=== PATIENT | male | born 1970 | race Caucasian/White ===

== ENCOUNTER 2020-06-09 17:08 | Emergency (ER) | payer MEDICAID, SELFPAY ==
[2020-06-09 17:19] VITALS: BP 153/80; PULSE 93; RESP 16; TEMP 36.2; O2SAT 100
[2020-06-09 17:33] VITALS: BP 153/80; PULSE 93; RESP 16; TEMP 36.2; O2SAT 100
--- NOTE | 2020-06-09 18:10 | ED.GENADULT ---
HPI - General Adult General Chief complaint: Skin/Abscess/Foreign Body Stated complaint: Skin/Foreign Abscess Source: patient Mode of arrival: ambulatory Limitations: no limitations History of Present Illness HPI narrative: Patient presents for evaluation of painful swollen lesion to the right posterolateral neck for the last 4 days. He has associated redness. Denies any fever, chills, nausea, vomiting, drainage from the affected area, difficulty breathing or swallowing. No underlying history of diabetes. States symptoms occurred while he was out of town in [facility] visiting friends. He has not tried any therapies to assist with his symptoms. No additional complaints or concerns. Related Data Home Medications Medication Instructions Recorded Confirmed No Home Medications 06/09/20 06/09/20 Allergies Allergy/AdvReac Type Severity Reaction Status Date / Time No Known Allergies Allergy Verified 06/09/20 17:33 Review of Systems Review of Systems: Narrative: CONSTITUTIONAL: Denies fever, chills, or sweats. EYES: Denies visual changes, redness, or discharge. ENT: Denies rhinorrhea, congestion, sore throat, or otalgia. CARDIOVASCULAR: Denies chest pain, palpitations, or edema. RESPIRATORY: Denies cough or dyspnea. GASTROINTESTINAL: Denies abdominal pain, nausea, vomiting, or diarrhea. GENITOURINARY: Denies dysuria or hematuria. SKIN: Reports painful swollen lesion to the right posterolateral neck with associated redness MUSCULOSKELETAL: Reports neck pain. Denies back pain, joint pain. NEUROLOGIC: Denies headache, numbness, dizziness, or weakness. PSYCHIATRIC: Denies anxiety or depression. PMFSH Past Medical History Medical History Tobacco use Surgical History Surgical History No pertinent past surgical history Family History Family History (Updated 06/09/20 @ 18:13 by Jose Alejandro Tinoco, ASSESSMENT NURSE PRACTITIONER, ) Mother No pertinent past medical history Father No pertinent past medical history Exam Narrative: Exam Narrative: GENERAL: Well-appearing, well-nourished, and in no acute distress. HEAD: Normocephalic, atraumatic. EYES: PERRLA and EOMI. ENT: Nares clear, no rhinorrhea or epistaxis. Mucous membranes moist. Oropharynx without tonsillar hypertrophy exudate or other lesions. Bilateral TMs pearly montoya nonbulging NECK: Supple. No adenopathy No carotid bruits or JVD. Tenderness over right posterolateral neck lesion CHEST: Clear to auscultation. No respiratory distress. No wheezes rales or rhonchi HEART: Regular rate and rhythm. No murmur heard. Normal peripheral pulses. ABDOMEN: Soft, nontender, nondistended, normal active bowel sounds. EXTREMITIES: Normal range of motion. No edema. SKIN: Warm, dry, no rash. Approximately 2.5 cm raised erythematous lesion to the right posterolateral neck along the hairline, with erythema extending down the right lateral neck to the clavicle. There appears to be a central area of fluctuance with a central pustular lesion. There is also surrounding induration. NEURO: No focal deficits. Alert and oriented x3. PSYCH: Normal mood and affect. Course Course Emergency Course: This is a 49-year-old male that presented with a 4-day history of apparent abscess formation to the right posterior lateral neck. He had no systemic signs of infection. Attempted to perform incision and drainage. Patient was given local lidocaine. Unfortunately he was unable to tolerate the procedure so procedure was aborted. Informed patient it was recommended that he have incision and drainage performed but we do not have appropriate medication to sedate him to perform this. Informed patient that transfer to emergency department for IV med/sedation and drainage of lesion. I am concerned that due to anatomic location of this lesion, if it is not drained and could develop inflammatory changes in the neck which would place him at risk for airway co
== END 2020-06-09 18:51 | disposition short-term general hospital (02) ==
LOC: EXPBETH 17:15
PROVIDERS: Emergency Provider Nurse Practitioner
DX: L02.11 Cutaneous abscess of neck (principal); Z72.0 Tobacco use
CPT/HCPCS: 10060; 99202; G0463

== ENCOUNTER 2020-08-21 11:41 | Emergency (ER) | payer OTHER, SELFPAY ==
--- NOTE | 2020-08-21 11:49 | ED.DENTAL ---
HPI - Dental/Oral General Chief complaint: Dental/Oral Stated complaint: swollen jaw Time Seen by Provider: 08/21/20 11:49 Source: patient Mode of arrival: ambulatory Limitations: no limitations History of Present Illness HPI Narrative: William Celaya is a 49 yo male with no PMH who comes to express care with a knot that is swollen and painful in jaw that started yesterday. R lower jaw is swollen with large area at tooth 30 that is tender. He has no fever nausea or vomiting but states his pain is 9 out of 10 Patient was here 1 month ago with large cyst in the back of her right neck that was incised but patient was sent to the ER and he was hospitalized with IV antibiotics. States he is recovered since that time is not taking further medication Related Data Home Medications Medication Instructions Recorded Confirmed No Home Medications 06/09/20 06/09/20 Allergies Allergy/AdvReac Type Severity Reaction Status Date / Time No Known Allergies Allergy Verified 08/21/20 11:52 Review of Systems Review of Systems: Narrative: CONSTITUTIONAL: Denies fever, chills, sweats. EYES: Denies visual changes, redness, discharge. ENT: Denies rhinorrhea, congestion, sore throat, otalgia. CARDIOVASCULAR: Denies chest pain, palpitations, edema. RESPIRATORY: Denies dyspnea, wheezing, cough GASTROINTESTINAL: Denies abdominal pain, nausea, vomiting, diarrhea. GENITOURINARY: Denies dysuria, hematuria, abnormal discharge SKIN: Denies rash or itching. NEUROLOGIC: Denies numbness, or focal weakness. PSYCHIATRIC: Denies anxiety or depression. Right lower jaw swelling and pain appears to be dental issue [facility] Past Medical History Medical History Tobacco use Surgical History Surgical History No pertinent past surgical history Family History Family History Mother No pertinent past medical history Father No pertinent past medical history Social History Social History (Updated 08/21/20 @ 12:14 by Kasie Pinzon CNP) Smoking packs per day: 0.5 Smoking cigarettes per day: 10.0 Smoking status: Current every day smoker Tobacco type: cigarettes Alcohol intake: current Gender identity (if verbalized by the patient): Male Comments At time of signature, I agree with nursing past medical, surgical, social and family history. There is no relevant family history pertinent to the presenting complaint. Patient is blood pressure is elevated due to pain has no history of hypertension but will follow up with primary care physician Exam Narrative: Exam Narrative: GENERAL: This is a well-nourished, well-developed patient, in moderate distress. HEAD: normocephalic, atraumatic. EYES: Sclera clear/white. Vision is grossly intact. EARS: External ears normal. Hearing grossly intact. NOSE: External nose normal without nasal discharge, nares without redness, no rhinorrhea. THROAT: Mucous membranes moist, posterior pharynx -tooth #30 has fracture and hole- tender when palpated- swelling below umline NECK: Neck supple, non-tender CARDIOVASCULAR: Regular rate and rhythm without murmurs, gallops, or rubs. RESPIRATORY: Clear to auscultation. Breath sounds equal bilaterally. No wheezes, rales, or rhonchi. GASTROINTESTINAL: Abdomen soft, non-tender, SKIN: warm, intact with no suspicious lesions or rash, good texture and turgor. NEURO: awake, alert, and oriented to person, place and time. There were no obvious focal neurologic abnormalities. Steady gait EXTREMITIES: Normal range of motion. BACK: Nontender without deformity Course Course Emergency Course: Patient comes here with right lower jaw swelling and apparent fracture of tooth Examination patient will be started on Bactrim and Keflex with high-dose ibuprofen and hydrocodone hydrocodone for pain He has bradycardia and insurance and so was given dental sheets as well as she
[2020-08-21 11:56] VITALS: BP 145/87; PULSE 87; RESP 16; TEMP 36.9; O2SAT 99
== END 2020-08-21 12:29 | disposition home or self-care (01) ==
PROVIDERS: Emergency Provider Nurse Practitioner
DX: R22.0 Localized swelling, mass and lump, head (principal); K04.7 Periapical abscess without sinus; F17.210 Nicotine dependence, cigarettes, uncomplicated
CPT/HCPCS: 99213; G0463

== ENCOUNTER 2024-10-02 19:52 | Emergency (ER) | payer OTHER, SELFPAY ==
--- OUTSIDE RECORDS SUMMARY | 2024-10-02 19:54 | XMS_ITS | Clinical Summary ---
Author Organization [facility] Address [address] [place] [address] Phone Care Team Providers Care Community Chest Officer Name Role Phone Provider, None Primary Care Provider Unavailabl e Allergies No known active allergies Medications HYDROcodone-héctor taminophen (NORCO) 5-325 MG Tablet Take 1-2 Tabs by mouth every 4 hours as needed for Pain. 20 Tab 0 08/06/2016 Active cephALEXin (KEFLEX) 500 MG Capsule Take 500 mg by mouth 4 times daily. Active predniSONE (DELTASONE) 10 MG Tablet Use as directed. Active fluticasone (FLONASE) 50 MCG/ACT Suspension 1-2 Sprays by Nasal route daily. Use in each nostril as directed. Active oxyCODONE-aceta minophen (PERCOCET) 7.5-325 MG Tablet Take 1 Tab by mouth every 4 hours as needed for Pain. 20 Tab 0 08/10/2016 Active valACYclovir (VALTREX) 1 GM Tablet Take 1 Tab by mouth 3 times daily. 21 Tab 0 08/10/2016 Active Social History Tobacco Use Types Packs/Day Years Used Date Smoking Tobacco: Every Day Cigarettes Alcohol Use Standard Drinks/Week Comments Yes 20 (1 standard drink = 0.6 oz pu re alcohol) Sex and Gender Information Value Date Recorded Sex Assigned at Not on file Legal Sex Male 3:45 AM CDT Gender Identity Not on file Sexual Orientation Not on file Last Filed Vital Signs Vital Sign Reading Time Taken Comments Blood Pressure 112/59 08/10/2016 11:39 AM CDT Pulse 60 08/10/2016 11:39 AM CDT Temperature 37.5 C (99.5 F) 08/10/2016 11:39 AM CDT Respiratory Rate 18 08/10/2016 11:39 AM CDT Oxygen Saturation 99% 08/10/2016 11:39 AM CDT Inhaled Oxygen Concentration - - Weight 72.6 kg (160 lb) 08/10/2016 11:39 AM CDT Height 185.4 cm (6' 1 ) 08/10/2016 11:39 AM CDT Body Mass Index 21.11 08/10/2016 11:39 AM CDT Plan of Treatment Health Maintenance Due Date Last Done Comments Hepatitis C Virus (HCV) Screening 1972 TdaP Immunization 1972 Hepatitis B Immunization (1 of 3 - 19+ 3-dose series) 08/27/1991 Colonoscopy 2017 Colorectal Cancer Screening 2017 Cologuard 2022 Immunochemical Fecal Occult Blood 2022 Pneumococcal Immunization (5 0+ years) (1 of 1 - PCV) 2022 Zoster Immunization (1 of 2) 2022 Influenza Immunization (#1) 2024 SARS-COV-2 Immunization (1 - 2023- season) 2024 Respiratory Syncytial Virus (RSV) Immunization (Adult) (1 - 1-dose 75+ series) 08/27/2047 Meningococcal Immunization (ACWY) Aged Out No longer eligible based on patient's age to complete this topic Pneumococcal Immunization Combined Aged Out No longer eligible based on patient's age to complete this topic Rotavirus Immunization Aged Out No lo nger eligible based on patient's age to complete this topic Insurance [place]ICAID [place] Care Teams Community Chest Officer Relationship Specialty Start Date End Date Provider, None [place] PCP - General 08/06/16
--- OUTSIDE RECORDS SUMMARY | 2024-10-02 19:54 | XMS_ITS | Referral Summary ---
Author Organization [facility] [address] Address [address] [place] [address] Care Team Providers Care Control Technician Name Role Phone No, Physician Primary Care Provider [phone] Alexis Dutton MD Unavailable [phone] Allergies No known active allergies Medications ibuprofen (ADVIL,MOTRIN) 600 mg tablet Take 1 tablet (600 mg total) by mouth every 6 (six) hours as needed for pain for up to 30 doses 30 tablet 06/16/19 23 Active doxycycline (VIBRAMYCIN) 100 mg capsule Take 1 tablet/capsule (100 mg total) by mouth 2 (two) times a day 20 capsule 06/16/19 23 Active ondansetron ODT (ZOFRAN-ODT) 4 mg disintegrating tablet Take 1 tablet (4 mg total) by mouth every 8 (eight) hours as needed for nausea or vomiting Okay to take 20-30 minutes before taking antibiotics to help prevent nausea vomiting 20 tablet 06/16/19 23 Active cephalexin (KEFLEX) 500 mg capsule 06/16/19 23 Active HYDROcodone-acetam inophen (NORCO) 5-325 mg per tabletIndications: Pain Take 1 tablet by mouth every 6 (six) hours as needed for pain for up to 6 doses 6 tablet 02/15/20 23 Active ibuprofen (ADVIL,MOTRIN) 600 mg tabletIndications: Pain Take 1 tablet (600 mg total) by mouth every 6 (six) hours as needed for pain 30 tablet 02/20/20 23 Active Active Problems Problem Noted Date Diagnosed Date Epidermoid cyst of skin 06/26/2020 Overview (06/26/2020): Added automatically from request for surgery [id number] Lipoma of right lower extremity 06/26/2020 Overview (06/26/2020): Added automatically from request for surgery [id number] Cellulitis and abscess of neck 06/09/2020 Smoker 06/09/2020 Epidermoid cyst of neck Social History Tobacco Use Types Packs/Day Years Used Date Smoking Tobacco: Every Day Cigarettes 0.5 30 Tobacco Cessation:Ready to Q uit: No Alcohol Use Standard Drinks/Week Comments Yes 6 (1 standard drink = 0.6 oz pur e alcohol) PHQ-2 Answer Date Recorded PHQ-2 Total Score (If total score is 3 or more points, staff should administer the PHQ-9) 0 06/09/2020 Personal Safety Answer Date Recorded Have you ever been in or are you currently in a harmful physical or emotional relationship or is someone making you feel afraid or unsafe? 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 Gender Identity Not on file Sexual Orientation Not on file Last Filed Vital Signs Vital Sign Reading Time Taken Comments Blood Pressure 120/80 02/19/2023 2:52 AM CDT Pulse 77 02/19/2023 3:01 AM CDT Temperature 36.8 C (98.2 F) 02/19/2023 2:52 AM CDT Respiratory Rate 18 02/19/2023 2:52 AM CDT Oxygen Saturation 98% 02/19/2023 2:52 AM CDT Inhaled Oxygen Concentration - - Weight 77.1 kg (170 lb) 02/19/2023 2:52 AM CDT Height 185.4 cm (6' 1 ) 02/14/2023 12:32 PM CDT Body Mass Index 22.43 02/14/2023 12:32 PM CDT Plan of Treatment Not on file Insurance IDPA [facility] Advance Directives For more information, please contact: [phone] * Full Code (Latest Code Status on File) Date Activated Date Inactivated Comments 06/09/2020 11:09 PM 06/13/2020 3:18 PM Healthcare Agents on File Name Relationship Healthcare Agent Relationshi p Communication Amy Celaya Spouse Health Care Agent Care Teams Control Technician Relationship Specialty Start Date End Date No, Physician PCP - General 06/09/20 Alexis Dutton MD Surgeon General Surgery 06/13/20
--- OUTSIDE RECORDS SUMMARY | 2024-10-02 19:54 | XMS_ITS | Clinical Summary ---
Author Organization [facility] Address [address] [place] [address] Care Team Providers Care Mail Teller Name Role Phone No, Physician Primary Care Provider [phone] Alexis Dutton MD Unavailable [phone] Allergies No known active allergies Medications ibuprofen [...] (06/26/2020): Added automatically from request for surgery [id number] Lipoma of right lower extremity 06/26/2020 Overview (06/26/2020): Added automatically from request for surgery [id number] Cellulitis and abscess of neck 06/09/2020 Smoker 06/09/2020 Epidermoid cyst of neck Medical History Medical History Date Comments Sciatic pain Family History Medical History Relation Name Comments Cancer Mother Cancer Sister Relation Name Status Comments Mother Sister Social History Tobacco Use Types Packs/Day Years [...] on file 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 Gender Identity Not on file Sexual Orientation Not on file Obstetrics History Last Filed Vital Signs Vital Sign Reading [...] 02/14/2023 12:32 PM CDT Plan of Treatment Health Maintenance Due Date Last Done Comments Colon Cancer Screening-Colonoscopy 1972 Hepatitis C Screening 1972 Prostate Cancer Screening-PSA 1972 DTaP/Tdap/Td Vaccine (1 - Tdap) 08/27/1983 Hepatitis B Screening 1990 Regular Well Visit/Exam 18-64 1990 Pneumococcal vaccine <65 (1 of 2 - PCV) 08/27/1991 Depression Screening 06/09/2021 06/09/2020 Zoster Vaccine (1 of 2) 2022 Influenza Vaccine (Season Ended) 2025 Insurance IDFL [facility]FL [facility] Advance Directives For more information, please contact: [phone] * Full Code (Latest Code Status on File) Date Activated Date Inactivated Comments 06/09/2020 11:09 PM 06/13/2020 3:18 PM Healthcare Agents on File Name Relationship Healthcare Agent Relationshi p Communication Amymendez Celaya Spouse Health Care Agent Care Teams Mail Teller Relationship Specialty Start Date End Date No, Physician PCP - General 06/09/20 Alexis Dutton MD Surgeon General Surgery 06/13/20
[2024-10-02 19:58] VITALS: BP 138/107; PULSE 103; RESP 20; TEMP 37.2; O2SAT 100
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
== END 2024-10-02 20:20 | disposition home or self-care (01) ==
PROVIDERS: Emergency Provider Registered Nurse
DX: L02.611 Cutaneous abscess of right foot (principal); F17.210 Nicotine dependence, cigarettes, uncomplicated
CPT/HCPCS: 10060; 99213; G0463